=== PATIENT | male | born 1930 | race Caucasian/White ===

== ENCOUNTER 2018-03-21 09:01 | Inpatient (IN) | payer OTHER ==
--- NOTE | 2018-03-21 09:15 | CPEKG ---
Heart Rate: 78 RR Interval: 769 P-R Interval: 168 QRSD Interval: 86 QT Interval: 376 QTC Interval: 429 P Pearson: 84 QRS Pearson: 42 T Wave Pearson: 54 EKG Severity - ABNORMAL ECG - EKG Impression: SINUS RHYTHM EKG Impression: PVC's Electronically Signed By: Mary Dumont 21-Mar-2018 15:00:13
--- NOTE | 2018-03-21 09:33 | EDPHY ---
H & P Stated Complaint: cp since 0200/hx angina took nitro x 2 at 0200 Time Seen by Provider: 03/21/18 09:18 HPI/ROS: CHIEF COMPLAINT: Chest pain HISTORY OF PRESENT ILLNESS: 87-year-old male with coronary artery disease and dementia presents with chest pain. He awoke at 2:00 a.m. with chest discomfort. He took nitroglycerin x3 with resolution of chest pain. However he awoke at 6:15 a.m. with recurrent chest pain. NTG with relief. The chest pain is typical of his usual anginal symptoms. No chest pain now. He took a baby aspirin last evening. No associated symptoms. He rarely has chest discomfort. Last episode was over a month ago, and quickly resolved, according to his . Very unusual for him to wake up in the middle of the night. REVIEW OF SYSTEMS: complete 10 point ROS negative except at noted in the HPI - Personal History Current Tetanus/Diphtheria Vaccine: Yes - Medical/Surgical History Hx Asthma: No Hx Chronic Respiratory Disease: No Hx Diabetes: No Hx Cardiac Disease: Yes Hx Renal Disease: No Hx Cirrhosis: No Hx Alcoholism: No Hx HIV/AIDS: No Hx Splenectomy or Spleen Trauma: No Other PMH: stents/angina - Social History Smoking Status: Never smoked - Physical Exam Exam: General Appearance: Alert, pleasant Eyes: Pupils equal and round, no conjunctival pallor or injection ENT, Mouth: Mucous membranes moist Neck: Normal inspection Respiratory: Lungs are clear to auscultation Cardiovascular: Regular rate and rhythm Gastrointestinal: Abdomen is soft and nontender Neurological: A&O, nonfocal exam Skin: Warm and dry Extremities: 1+ pedal edema Psychiatric: Mood and affect normal Constitutional: Initial Vital Signs Temperature (C) 36.4 C 03/21/18 09:05 Heart Rate 85 03/21/18 09:05 Respiratory Rate 18 03/21/18 09:05 Blood Pressure 156/102 H 03/21/18 09:05 O2 Sat (%) 96 03/21/18 09:05 O2 Delivery Mode Room Air Allergies/Adverse Reactions: No Known Allergies Allergy (Unverified 03/21/18 09:04) Home Medications: Medication Instructions Recorded Aspirin [Aspirin 81mg (*)] 81 mg PO DAILY@18 03/21/18 Atorvastatin Calcium [Lipitor 10 10 mg PO DAILY@03/21/18 mg (*)] Nitroglycerin [Nitroglycerin Patch] 0.2 mg TD DAILY@10 03/21/18 Metoprolol Tartrate [Lopressor 25 25 mg PO BID #60 tab 03/22/18 mg (*)] Nitroglycerin 0.4 mg SL Q5M PRN #20 tab.subl 03/22/18 Patch Removal 1 ea TD DAILY@2000 patch 03/22/18 Sennosides/Docusate Sodium 1 each PO BID #60 tablet 03/22/18 [Senna-Docusate Sodium Tablet] amLODIPine BESYLATE [Norvasc 5 mg 5 mg PO DAILY #30 tab 03/22/18 (*)] Medical Decision Making - Diagnostics EKG Interpretation: EKG interpreted by me reveals normal sinus rhythm, rate 78, PVCs, no ST or T segment changes. Interpretation: Abnormal EKG Imaging Results: Chest X-Ray 03/21/18 09:18 Impression: 1. No active cardiopulmonary disease seen. ED Course/Re-evaluation: This patient presents with typical anginal symptoms, now resolved. Aspirin 324 mg orally given. Stat EKG reveals no evidence of ischemia. troponin elevated, c/w ACS. Results discussed with the patient and his . He remains asymptomatic. Dr. Christy consulted and will see the pt. The hospitalist service was consulted for admission. Stable throughout his emergency department stay. Differential Diagnosis: Differential diagnosis includes though it is not limited to pneumonia, pneumothorax, pulmonary embolism, aortic dissection, pericarditis, acute coronary syndrome. - Data Points Laboratory Results: Laboratory Results 03/21/18 09:19 03/21/18 09:19 Medications Given: Discontinued Medications Amlodipine Besylate (Norvasc) 5 mg PO DAILY [facility] Stop: 09/17/18 13:14 Last Admin: 03/22/18 09:28 Dose: 5 mg Aspirin (Aspirin) 324 mg PO EDNOW ONE Stop: 03/21/18 09:35 Last Admin: 03/21/18 09:45 Dose: 324 mg Aspirin (Aspirin) 81 mg PO DAILY@18 [facility] Stop: 09/17/18 17:59 Last Admin: 03/21/18 17:17 Dose: 81 mg Atorvastatin Calcium (Lipitor) 10 mg PO DAILY@18 [facility] Stop: 09/17/18 17:59 Last Admin: 03/21/18 17:17 Dose: 10 mg Enoxaparin Sodium (Lovenox) 40 mg SC DAILY [facility] Stop: 09/18/18 08:59 Last Admin: 03/22/18 12:33 Dose: Not Given Magnesium Hydroxide (Milk Of Magnesia) 30 ml PO ONCE ONE Stop: 03/21/18 21:51 Last Admin: 03/21/18 22:50 Dose: Not Given Metoprolol Tartrate (Lopressor) 12.5 mg PO BID [facility] Stop: 09/17/18 11:29 Last Admin: 03/21/18 13:04 Dose: 12.5 mg Metoprolol Tartrate (Lopressor) 25 mg PO BID [facility] Stop: 09/17/18 11:29 Last Admin: 03/22/18 09:29 Dose: 25 mg Miscellaneous Information (Patch Removal) 1 ea TD DAILY@1999 [facility] Stop: 09/17/18 19:59 Last Admin: 03/21/18 20:18 Dose: Not Given Nitroglycerin (Transderm-Nitro) 0.2 mg TD DAILY@10 [facility] Stop: 09/18/18 09:59 Last Admin: 03/22/18 09:29 Dose: 0.2 mg Departure - Departure Disposition: [facility] Acute Clinical Impression: Chest pain Qualifiers: Chest pain type: chest pain due to myocardial ischemia Ischemic chest pain type : unstable angina pectoris Qualified Code(s): I20.0 - Unstable angina Condition: Fair
[2018-03-21 09:34] LABS: PLATELET COUNT 162 10^3/uL (150-400)
[2018-03-21] MEDS ORDERED: ASPIRIN 81 MG CHEWABLE TAB PO ONE (09:34)
[2018-03-21] MEDS ORDERED: ONDANSETRON 4 MG/2 ML VIAL IVP PRN (11:18)
[2018-03-21] MEDS ORDERED: ACETAMINOPHEN 325 MG TAB PO PRN (11:18)
[2018-03-21] MEDS ORDERED: ONDANSETRON DISINTEGRATING 4 MG TAB PO PRN (11:18)
[2018-03-21] MEDS ORDERED: METOPROLOL TARTRATE 25 MG TAB PO SCH (11:30)
--- NOTE | 2018-03-21 11:52 | GHP ---
[f rep st] HISTORY AND PHYSICAL DATE OF ADMISSION: 03/21/2018 HISTORY: The patient is a pleasant 87-year-old with history of coronary disease who gets care at [facility] and presents with chest pain. It sounds like he has occasional chest pain that is responsive to nitroglycerin. His notes maybe a couple times a month or maybe a couple times so far this year, he has been woken up at night and she has given him a nitroglycerin and his chest pain has resolved. Last night, he woke up and had chest pain, took nitroglycerin twice about 10 minutes apart. This was about 2:30 in the morning and then he continued to not feel well. He may have dosed and then, at 6:30 in the morning, he had continued chest pain, took a nitroglycerin and they came to the emergenc y department because of malaise. The patient has some baseline cognitive dysfunction/dementia and he is unable to characterize his melvina st pain further. He notes no orthopnea. He has some lower extremity edema. A lot of the history is provided from the . Regarding his coronary disease, he has had stents in 2010 and 2012. The anatomy is not clear. He bernard d a screening angiogram in 2015 at which time he was told his stents were patent. His expresses concern that he has an occluded stent. No fever, chills, cough, sputum, nausea, vomiting, diarrhea. REVIEW OF SYSTEMS: A complete 10-point review of systems conducted, negative except as noted in the HPI. PAST MEDICAL HISTORY: Coronary artery disease, memory impairment. ALLERGIES: No known drug allergies. HOME MEDICATIONS: Aspirin, atorvastatin, nitroglycerin patch. SOCIAL HISTORY: No tobacco, no alcohol. 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 Lives in [place]. FAMILY HISTORY: Parents . PHYSICAL EXAMINATION: VITAL SIGNS: Temp 36.4, blood pressure 156/102, now 162/87, pulse 85. Breath ing 18 times a minute, 96% on room air. GENERAL: No acute distress, pale. HEENT: Sclerae anicteric. Oropharynx clear. Mucous membranes are moist. NECK: Supple. No lymphadenopathy. There is no JVD. LUNGS: Clear to auscultation bilaterally. HEART: S1, S2. No murmurs. ABDOMEN: Soft, nontender, nondistended. LOWER EXTREMITIES: Show trace edema bilaterally. Calves are nontender. SKIN: Withou t rash. NEUROLOGIC: Nonfocal. DIAGNOSTIC STUDIES: EKG interpreted by me shows sinus at 78 with normal axis and intervals. There ar e some diffuse flat T's but otherwise no ST or T-wave changes. There is no ST elevation. Chest x-ra y interpreted by me shows no acute cardiopulmonary disease, no CHF. I discussed the case Dr. Diana Dumont. LABS: White count 4.7, hematocrit 39.9, platelets 162,000. Sodium 141, potassium 4.1, chloride 101, bicarb 27, BUN 21, creatinine 1.1, glucose 110. Troponin 0.247. BNP is 356. ASSESSMENT AND PLAN: An 87-year-old gentleman with coronary disease presents with stable angina. 1. Unstable angina. The patient has chest pain. Positive cardiac enzymes. We will trend these. T he patient currently has no EKG changes and no chest pain so will hold off on the heparin drip and ni troglycerin drip. We will continue his nitroglycerin patch. We will rapid cycle a troponin now. Ch jonatan an echocardiogram. Cardiology has been consulted to see him. We will start beta nicki now. 2. Anemia. This is mild. Will follow. It is not driving his current process. 3. Dementia. This appears to be his baseline, he is not acutely confused, just a little slow to resp ond with memory impairment. He seems to defer to his . She seems to express that this is his ba seline. This would certainly be a factor in determining the plan of care. 4. Code status. I discussed code status. It sounds like he is leaning toward do not resuscitate, bu t is unable to make a decision at this time, so he remains full code. 5. Hyperlipidemia. Continue statin. 6. Hypertension. The patient is not on medicines for hypertension, but he is hypertensive here so w ill start him on some oral beta nicki. DISPOSITION: Inpatient status. /[id number]/MODL
--- NOTE | 2018-03-21 12:31 | ECHO ---
[email or web address] [address] [address] Main: [phone] Fax: Transthoracic Echocardiogram Name: CASS SALDAÑA MR#: [id number] Study Date: 03/21/2018 Study Time: 12:01 PM Date of : 1930 Age: 87 year(s) Height: 177.8 cm (70 in.) Weight: 74.84 kg (165 lb.) BSA: 1.92 m2 Gender: Male Examination: Echo Indication: Image Quality: Adequate Contrast: Requested by: Carmelo Curiel BP: 185 mmHg/99 mmHg Heart Rate: Rhythm: Indication: Procedure Staff Scarifier Operator: Edna Kulkarni [facility] Reading Physician: Manny Gibbs MD Requesting Provider: Conclusions: Normal global systolic LV function. EF is 54 %. Mild mitral valve regurgitation is present. Mild aortic valve regurgitation is present. Mild tricuspid regurgitation is present. The pulmonary artery pressure is mildly increased. Right ventricular systolic pressure measures 40mmHg. Measurements: Chambers Valvular Assessment AV/MV Valvular Assessment TV/PV Normal Normal Normal Name Value Range Name Value Range Name Value Range Ao Brittny (2D): 3.3 cm (1.4 cm-2.6 AV Vmax: 1.09 m/s (1 m/s-1.7 TR Vmax: 2.96 mm/s ( - ) cm) m/s) TR PGmax: 35 mmHg ( - ) IVSd (2D): 1.0 cm (0.6 cm-1.1 AV maxP mmHg ( - ) syst. PAP: 40 mmHg ( - ) cm) AV meanP mmHg ( - ) PV Vmax: 0.65 m/s (0.6 m/s-0.9 LVDd (2D): 4.2 cm (4.2 cm-5.9 LVOT Vmax: 0.75 m/s (0.7 m/s-1.1 m/s) cm) m/s) PV PGmax: 2 mmHg ( - ) LVDs (2D): 3.0 cm (2.1 cm-4 MAHOGANY (Vmax): 2.4 cm2 ( - ) cm) MHAOGANY (VTI): 1.8 cm ( - ) LVPWd (2D): 1.1 cm (0.6 cm-1 MV E Vmax: 0.52 m/s ( - ) cm) MV A Vmax: 0.70 m/s ( - ) LVOTd 2.1 cm 2.1 cm mm MV E/A: 0.74 ( - ) LVEF (BP): 54 % (>=55 %) MV PHT: 0.093 s ( - ) RVDd(2D): 2.7 cm (1.9 cm-3.8 cmmm) MVA (PHT): 2.4 s ( - ) Continued Measurements: Chambers Valvular Assessment AV/MV Valvular Assessment TV/PV Patient: CASS SALDAÑA Study Date: 03/21/2018 Page 1 of 2 12:01 PM Name Value Name Value Name Value LADs: 3.5 cm MV DecTime: 289 m/s CVP (est.): 5 mmHg LADs Lon.8 cm MV E/E' Septal: 8.10 LA Area: 14.3 cm2 MV E/E' Lateral: 6.50 LA Volume: 40 ml LA Volume Index: 20.8 ml/m2 RA Area: 17.5 cm2 Additional Vessels Name Value Ao Ascendin.9 cm Inferior Vena Cava: 1.5 cm Findings: Left Ventricle: Normal size left ventricle. No LV hypertrophy. Normal global systolic LV function. EF is 54 %. No regional wall motion abnormality. Grade 1 diastolic dysfunction (abnormal relaxation). Right Ventricle: Normal size right ventricle. Normal RV function. Left Atrium: The left atrium is normal in size. Right Atrium: The right atrium is normal in size. Mitral Valve: The mitral valve is normal in appearance and function. Mild mitral valve regurgitation is present. No mitral stenosis is present. Aortic Valve: The aortic valve is normal in appearance and function. Mild aortic valve regurgitation is present. No aortic valve stenosis is present. Tricuspid Valve: The tricuspid valve is normal in appearance and function. Mild tricuspid regurgitation is present. The pulmonary artery pressure is mildly increased. Right ventricular systolic pressure measures 40mmHg. Pulmonic Valve: The pulmonic valve is normal in appearance and function. There is no pulmonic regurgitation seen. Aorta: The aorta is normal. Normal size aortic root measuring 3.3 cm. Normal size ascending aorta measuring 2.9 cm. IVC: The IVC is normal sized. Pericardium: No pericardial effusion. No pleural effusion. (No Signature Object) Patient: CASS SALDAÑA Study Date: 03/21/2018 Page 2 of 2 12:01 PM [id number]
[2018-03-21 12:41] LABS: INR 1.01 (0.83-1.16); PROTIME(PATIENT) 13.5 SEC (12.0-15.0)
[2018-03-21] MEDS ORDERED: hydrALAZINE 20 MG/ML VIAL IVP PRN (13:25)
--- NOTE | 2018-03-21 13:48 | GCON ---
[f rep st] CONSULTATION CARDIOLOGY CONSULT DATE OF CONSULTATION: 03/21/2018 Primary insurance loss assessor is Dr. Liu. REASON FOR CONSULTATION: We were asked by Dr. Curiel of [facility] to evaluate the patient for his episodes of chest pain. HISTORY OF PRESENT ILLNESS: The patient is an 87-year-old male with a known history of CAD. His provides much of the history. They report that, in 2010, he had started to experience chest discomfort. He proceeded to left heart catheterization and had placement of 4 stents. His mentions that they considered bypass surgery on him but opted for stenting at that time. In 2012, he had recurrent anginal symptoms and proceeded to repeat heart catheterization, and this resulted in 2 more stents being placed. These are in unknown vessels. In September of 2016, he had chest pain and had a diagnostic left heart catheterization that showed patent stents. He describes stable angina, typically relieved by nitroglycerin. Typically, he will have once-monthly episodes. His last episode prior to this morning's episode was February 23. This was relieved by sublingual nitroglycerin in approximately 5 minutes. At 2:29 this morning, he awoke to use the bathroom. Upon standing and walking, he noted a midsternal mild chest pressure. He did take a nitroglycerin. He was able to get back in bed and noted ongoing discomfort so, at approximately 2:38, he took another nitroglycerin. He reports that he was in and out of sleep for the rest of the night. At 6:15 this morning, he noted that he had ongoing discomfort and took another sublingual nitroglycerin. He feels this did alleviate his discomfort. He denies any associated nausea, diaphoresis, or dyspnea. He has been active with his usual ADLs. He and his go shopping, and he is able to do mostly calisthenics every day for an hour and a half. He denies any PND, orthopnea, presyncope, syncope, palpitations. He is limited by fatigue that has been going on for a few years now. He denies any recent illness. He specifically denies any fever, chills, cough, hemoptysis, dysuria, or diarrhea. He does have occasional constipation. REVIEW OF SYSTEMS: As per HPI. A complete 10-point review of systems was obtained and is negative except for what is dictated. PAST MEDICAL HISTORY: 1. CAD as listed in HPI. 2. History of phimosis. 3. Dyslipidemia. 4. Hypertension. 5. Chronic angina. PAST SURGICAL HISTORY: Circumcision 20 years ago and trigger finger surgery and cataract surgery. SOCIAL HISTORY: Patient is . His is present at the bedside. He is a never smoker. No significant alcohol. FAMILY HISTORY: His father had 17 heart attacks and at age 77. He has 11 siblings, and all of them lived to old ages. He has a sister, who is 100 years old currently. He has 2 children, who are in good health. MEDICATIONS ON ADMISSION: These include atorvastatin, aspirin, and nitroglycerin patch. ALLERGIES: No known drug allergies. PHYSICAL EXAMINATION: VITAL SIGNS: BP of 185/99, heart rate of 70, respirations 12, O2 saturation 97% on room air, and temp of 97.7 degrees Fahrenheit. GENERAL: He is a very pleasant male who responds to questions with typically 1-2 word responses. EYES: Without scleral icterus. HEAD: Normocephalic, atraumatic. HEART: Distant heart sounds with no rubs, gallops, or murmurs. LUNGS: Clear. NECK: Carotids without bruit. ABDOMEN: Soft, nontender, with normoactive bowel sounds. SKIN: Warm and dry. EXTREMITIES: Mild pedal edema. PSYCH: Patient is not agitated. NEURO: No focal deficits detected. LABORATORY DATA: BMP with sodium 141, potassium 4.1, chloride 101, CO2 of 27, BUN 21, creatinine 1.1, glucose 110. Troponin 0.47, then 0.38. NT proBNP of 356. CBC with WBC 4.68, hemoglobin 14, hematocrit 39.9, platelet count of 162. IMAGING: A 12-lead ECG, personally interpreted, demonstrates sinus rhythm with frequent PVCs. There are mild ST-T wave abnormalities detected. Chest x-ray shows no active cardiac process seen. There are some atherosclerotic changes in the aortic arch. A 03/21/2018 echocardiogram shows EF of 54, mild MR, mild AR, mild TR, RVSP of 40 mmHg. I discussed patient's care with Dr. Curiel. IMPRESSION AND PLAN: The patient is an 87-year-old male with extensive coronary artery disease history. 1. Unstable angina. He has now noted chest pain at rest that did not alleviate with nitroglycerin as it typically does. Given advanced age, no evidence of ST elevations, and only mild troponin elevations, we discussed a more conservative approach of watchful waiting. We will plan to get records from his [employer] insurance loss assessor, as well as his last cardiac catheterization. Medical management should be optimized at this point. He has been started on metoprolol, and likely this dose will need to be increased as he is quite hypertensive. 2. Underlying dementia. Patient is appropriate and not acutely confused. 3. Hypertension. Patient is quite hypertensive in this admission. This likely could be the reason for current angina. We will plan to optimize medical management with addition of beta nicki and calcium channel nicki. PRN Hydralazine will also be used. 4. Dyslipidemia. His statin therapy will be continued in this admission. /[id number]/MODL MTDD
--- NOTE | 2018-03-21 14:04 | PDMN ---
Medical Necessity Medical necessity: Patient meets inpatient criteria per physician note and MCG M -40 Angina vs M-230 VT (ongoing chest pain despite nitro; elevated troponins x 2; hx of CAD with stents in 2010 and 2012; anticipated LOS > 2 midnights for ongoing cardiac monitoring and evaluation/treatment, initiation of beta nicki for HTN.)
[2018-03-21] MEDS: amLODIPine BESYLATE 5 MG TAB PO SCH (14:20)
[2018-03-21] MEDS ORDERED: ATORVASTATIN CALCIUM 10 MG TAB PO SCH (18:00)
[2018-03-21] MEDS ORDERED: ASPIRIN 81 MG CHEWABLE TAB PO SCH (18:00)
[2018-03-21] MEDS ORDERED: PATCH REMOVAL 1 EA PATCH TD SCH (20:00)
[2018-03-21] MEDS: METOPROLOL TARTRATE 25 MG TAB PO SCH (20:14)
[2018-03-21] MEDS ORDERED: MAGNESIUM HYDROXIDE 30 ML UDCUP PO ONE (21:50)
[2018-03-22 04:11] LABS: PLATELET COUNT 154 10^3/uL (150-400)
[2018-03-22] MEDS ORDERED: ENOXAPARIN 40 MG/0.4 ML SYR SC SCH (09:00)
[2018-03-22] MEDS: amLODIPine BESYLATE 5 MG TAB PO SCH (09:28)
[2018-03-22] MEDS: METOPROLOL TARTRATE 25 MG TAB PO SCH (09:29)
[2018-03-22] MEDS ORDERED: NITROGLYCERIN 0.2 MG/HR PATCH TD SCH (10:00)
--- NOTE | 2018-03-22 11:51 | PDCARPN ---
Cardiology Progress Note Assessment/Plan: Assessment: 1. Unstable Angina wt mild troponin elevation peak of 0.380, currently 0.272. (resolved) 2. CAD 3. Hypertension 4. Dementia Plan: -Recommend medical management for underlying CAD and Unstable anginal symptoms which have resolved in an 87 year old gentleman with underlying dementia with peak troponin of 0.380, no ECG changes and normal LVEF with no wall motion abnormalities who remains chest pain free. -Recommend continuing Amlodipine 5 mg daily and Metoprolol tartrate 25 mg bid ( both new meds this admission) -Continue all out patient medications -Recommend follow up with primary fire fighter [facility] fire and rescue at in 1-2 weeks. -Consider the addtion of Ranolazine (ranexa) if further unstable anginal symptoms 03/22/18 11:52 Subjective: 87 year old gentleman with known history of CAD admitted yesterday with symptoms consistent with unstable angina. He was found to be hypertensive on admission. Initial troponin of 0.247 trending to 0.380 to 0.376 and 0.272. He is chest pain free. No events on telemetry. Echo demonstrated normal LVEF of 54 % without wall motion abnormalities. NT-BNP 356. No evidence of anemia with Hgb of 13.1. Normal renal function. He has been started on amlodipine 5 mg daily and metoprolol tartrate 25 mg bid. Most recent BP 153/78 Reviewed/Discussed With: multidisciplinary team Time Spent With Patient: 30 minutes Objective: Vital Signs (8 Hrs) Temp Pulse Resp BP Pulse Ox 03/22/18 09:33 97 03/22/18 07:55 36.7 C 68 12 153/75 H 95 03/22/18 04:00 36.5 C 63 16 128/64 H 95 Intake/Output (24 Hrs) 03/21/18 03/22/18 03/23/18 05:59 05:59 05:59 Intake Total 600 Output Total 1 Balance 599 Intake: Oral (ml) 600 Output: Urine (ml) 1 Toilet 1 Other: Weight 74.9 kg Intake Quantity Yes Sufficient Number of Voids 1 Toilet 3 1 Number of Stools Toilet 1 Result Diagrams: 03/22/18 03:53 03/22/18 03:53 Cardiac Labs: Cardiac Lab Results (72 Hrs) 05/04/18 05/03/18 05/03/18 03:53 16:25 12:16 Troponin I 0.232 H 0.376 H 0.380 H - Physical Exam Constitutional: WDWN, no apparent distress Cardiovascular: regular rate and rhythm, no murmurs, no rubs, no gallops Peripheral Pulses: 2+: carotid (R), carotid (L) Respiratory: clear to auscultate bilat Gastrointestinal: normoactive bowel sounds Neurologic: AAOx3, CN II-XII grossly intact Psychiatric: cooperative, interactive, following commands ICD10 Worksheet Patient Problems: Problems Problem Status Onset Chest pain Acute
[2018-03-22 12:13] VITALS: BP 109/63
--- NOTE | 2018-03-22 12:46 | ASMTCASEMG ---
Living Arrangements What is your living Answers: With Spouse arrangement? Who do you live with? Type Of Residence What kind of residence do Answers: House you live in? Discharge Plan Comments Coordination Status Comments Notes: Pts case discussed w/ Dr. Piedra and YUVAL Mackenzie regarding d/c POC. CM met w/ pt and for dispo planning. PT is recommending home w/ outpatient therapy with 24hr supervision. Pt and feels that they have enough support at home. CM provided pt and list of non skilled HC as a resource to have. CM available for changes. Plan: Independent Date Signed: 03/22/2018 12:45 PM Electronically Signed By:ANGELITA Leyva
--- NOTE | 2018-03-22 12:47 | ASMTLACE ---
LACE Length of stay for Answers: 1 day current admission Acuity / Level of Answers: Yes Care: Did the patient have an inpatient admission? Comorbidities - select Answers: Coronary Artery Disease all that apply # of Emergency department Answers: 1-2 visits in the last 6 months Score: 7 Date Signed: 03/22/2018 12:46 PM Electronically Signed By:ANGELITA Leyva
--- NOTE | 2018-03-22 17:08 | PDDCSUM ---
Discharge Summary Discharge Summary: DISCHARGE SUMMARY FOLLOW-UP ITEMS: 1. Follow-up any recurrent chest pain with primary coater associate DATE OF ADMISSION: 03/21/2018 DATE OF DISCHARGE: 03/22/2018 DISCHARGE DIAGNOSES: 1. Acute unstable angina 2. Chronic coronary artery disease 3. Mild dementia 4. Chronic hypertension CONSULTATIONS: Cardiology PROCEDURES / IMAGING: Echocardiogram demonstrating ejection fraction 54%, no focal wall motion abnormalities, diastolic dysfunction, normal right ventricle, mildly increased pulmonary artery pressure Chest x-ray without any abnormalities CHIEF COMPLAINT: Acute chest pain SUBJECTIVE: Patient not having any ongoing chest pain at time discharge PHYSICAL EXAM ON DISCHARGE: Systolic blood pressure is 110, heart rate 60-70, afebrile overnight, satting on room air, lungs are clear to auscultation bilaterally, no lower extremity edema, heart rhythm is regular LABS ON DISCHARGE: Troponin 0.038, creatinine 1, white blood count 5200, hemoglobin 13.1 HOSPITAL COURSE BY PROBLEM: Patient presented with acute chest pain most likely secondary to unstable angina with a mildly elevated troponin level of 0.38, chest pain at rest, known history of coronary artery disease, temporarily alleviated with sublingual nitroglycerin. Patient was seen in consultation by Cardiology, he discussed the patient's options with him and his regarding possible cardiac catheterization versus medical management. Given that the patient has mild dementia, has limited functional status, the decision was made with the patient his to pursue medical management and no further invasive procedures. Consequently, since his blood pressure was suboptimally controlled in systolic blood pressures beyond between 170 and 200 on presentation, amlodipine and metoprolol were both added, the patient was continued on his nitro patch, and we provided him with some as needed sublingual nitroglycerin tabs to utilize as needed if he experiences any recurrent anginal pain. The next step in medical management would be addition of ranolazine, and we encouraged the patient is to follow up with [facility] to discuss this option if the patient experiences recurrent anginal symptoms. DISCHARGE MEDICATIONS: Please see official discharge medication reconciliation sheet in chart , continue home medications with the addition of metoprolol tartrate 25 mg twice daily, amlodipine 5 mg once daily, nitroglycerin tabs as needed, Senokot S twice daily. DISCHARGE INSTRUCTIONS: Please follow up with primary provider as well as [facility]. Greater than 30 min were spent on direct patient care as well as discharge planning and preparation. The patient was discharged prior to Dr. Curiel's originally anticipated 48 hr of care secondary to rapid, unanticipated resolution of his unstable angina as well as the decision by the patient and the to pursue medical management as opposed to aggressive intervention with cardiac catheterization.
== END 2018-03-22 13:42 | disposition home or self-care (01) | DRG 303 ==
LOC: OBSVTOIN 10:06 → F2W 11:30
PROVIDERS: ADMIT Internal Medicine; ATTEND Internal Medicine
DX: I25.110 Atherosclerotic heart disease of native coronary artery with unstable angina pectoris (principal); F03.90 Unspecified dementia, unspecified severity, without behavioral disturbance, psychotic disturbance, mood disturbance, and anxiety; D64.9 Anemia, unspecified; E78.5 Hyperlipidemia, unspecified; I10 Essential (primary) hypertension; Z95.5 Presence of coronary angioplasty implant and graft
CPT/HCPCS: 97161-GP; J1650